=== PATIENT | female | born 1955 | race Caucasian/White ===

== ENCOUNTER 2017-07-21 01:54 | Inpatient (IN) | payer OTHER, MEDICAID ==
[~2017-07-21] VITALS: Ht 154.9 cm; Wt 94.9 kg
[~2017-07-21 01:54] MED LIST: AMLO-511 PO; ASPI-891 PO; ATOR40TA28 PO; LISI-662 PO; METF500T4 PO; METO25 PO; OMEP20 PO; SITA100 PO; VENL-193 PO
[2017-07-21] MEDS ORDERED: INSNOV SQ (02:13)
[2017-07-21] MEDS ORDERED: CHL25 PO (02:13)
[2017-07-21] MEDS ORDERED: ARIP2 PO (02:13)
[2017-07-21] MEDS ORDERED: METO50 PO (02:13)
[2017-07-21] MEDS ORDERED: INSLAN SQ (02:13)
[2017-07-21] MEDS ORDERED: BACL10TA PO (02:13)
[2017-07-21] MEDS ORDERED: PREG50 PO (02:13)
[2017-07-21] MEDS ORDERED: VENL-193 PO (02:13)
[2017-07-21 02:20] LABS: EOSINOPHILS # (AUTO) 0.02 K/uL (0.00-0.70); EOSINOPHILS % (AUTO) 0.23 % (1.0-6.0); HEMATOCRIT 33.9 % (36-46); HEMOGLOBIN 10.6 g/dL (12.0-16.0); LYMPHOCYTES # (AUTO) 0.6 K/uL (1.0-4.8); LYMPHOCYTES % (AUTO) 8.3 % (22.0-44.0); MEAN CORPUSCULAR HEMOGLOBIN 19.8 pg (26.0-34.0); MEAN CORPUSCULAR HGB CONC 31.2 G/dL (31.0-37.0); MEAN CORPUSCULAR VOLUME 63 fL (80-100); MONOCYTES # (AUTO) 0.4 K/uL (0.1-1.0); MONOCYTES % (AUTO) 5.7 % (2.0-9.0); NEUTROPHILS # (AUTO) 6.6 K/uL (1.8-7.7); RED BLOOD CELL COUNT(AUTO) 5.34 MIL/uL (4.00-5.20); RED CELL DISTRIBUTION WIDTH 19.7 % (11.5-14.5); WHITE BLOOD COUNT (AUTO) 7.7 K/uL (4.5-11.0)
[2017-07-21 02:21] LABS: NEUTROPHILS % (AUTO) 85.7 % (40.0-70.0)
[2017-07-21] MEDS ORDERED: HALOPERIDOL 5 MG TABLET PO PRN (02:30)
[2017-07-21] MEDS ORDERED: ZOLPIDEM TARTRATE 10 MG TABLET PO PRN (02:30)
[2017-07-21] MEDS ORDERED: LORazepam 2 MG TABLET PO PRN (02:30)
[2017-07-21 02:35] LABS: ALANINE AMINOTRANSFERASE 30 U/L (12-78); ALBUMIN 3.6 g/dL (3.4-5.0); ANION GAP 11 mmol/L (8-16); ASPARTATE AMINOTRANSFERASE 27 U/L (15-37); BILIRUBIN,TOTAL 0.6 mg/dL (0.1-1.0); CARBON DIOXIDE 26 mmol/L (22-29); CHLORIDE 100 mmol/L (98-107); CREATININE 1.17 mg/dL (0.60-1.30); GLOMERULAR FILTR. RATE CALC 47 mL/min (>60); SODIUM SERUM 137 mmol/L (136-145); TOTAL PROTEIN, SERUM 7.3 g/dL (6.4-8.2); UREA NITROGEN, BLOOD 18 mg/dL (7-18)
[2017-07-21] MEDS ORDERED: INSULIN REGULAR, HUMAN 100 UNITS/ML SQ ONE (02:45)
[2017-07-21 02:55] LABS: PLATELET COUNT (AUTO) 96 K/uL (150-450); RBC MORPHOLOGY COMMENT ABNORMAL RBC MORPH
[2017-07-21 02:57] LABS: POTASSIUM 2.8 mmol/L (3.5-5.1)
[2017-07-21 03:14] LABS: CHOL/HDL RATIO 3.8 (3.9-5.7)
[2017-07-21] MEDS ORDERED: POTASSIUM CHLORIDE 10% 40 MEQ/30 ML LIQUID UDCUP PO ONE ×2 (03:30→03:55)
[2017-07-21 04:08] LABS: GLUCOSE,POINT OF CARE 232 MG/DL (70-110)
[2017-07-21 07:52] LABS: GLUCOSE,POINT OF CARE 196 MG/DL (70-110)
[2017-07-21 11:32] LABS: GLUCOSE,POINT OF CARE 239 MG/DL (70-110)
[2017-07-21] MEDS ORDERED: DEXTROSE 50%-WATER 25 GM/50 ML SYRINGE IVP PRN (12:00)
[2017-07-21] MEDS: INSULIN ASPART 100 UNITS/ML SQ PRN ×2 (12:02→18:42)
[2017-07-21] MEDS ORDERED: DiphenhydrAMINE HCL 50 MG/ML VIAL IM ONE (15:30)
[2017-07-21] MEDS ORDERED: HALOPERIDOL LACTATE 5 MG/ML VIAL IM ONE (15:30)
[2017-07-21] MEDS ORDERED: LORazepam 2 MG/ML VIAL IM ONE (15:30)
[2017-07-21 17:58] LABS: GLUCOSE,POINT OF CARE 291 MG/DL (70-110)
[2017-07-21 22:36] VITALS: BP 130/70
[2017-07-22 01:28] VITALS: BP 141/83
[2017-07-22 05:39] LABS: GLUCOSE COMMENT 1 Received Meds; GLUCOSE,POINT OF CARE 214 MG/DL (70-110)
[2017-07-22] MEDS: MetFORMIN HCL 500 MG TABLET PO SCH ×2 (07:02→17:06)
[2017-07-22] MEDS: INSULIN ASPART 100 UNITS/ML SQ PRN ×4 (07:09→20:58)
[2017-07-22] MEDS: OMEPRAZOLE 20 MG CAPSULE PO SCH (08:14)
[2017-07-22] MEDS: ATORVASTATIN CALCIUM 40 MG TABLET PO SCH (08:14)
[2017-07-22] MEDS: LISINOPRIL 20 MG TABLET PO SCH ×2 (08:14→16:57)
[2017-07-22] MEDS: AmLODIPine BESYLATE 5 MG TABLET PO SCH (08:14)
[2017-07-22] MEDS: ASPIRIN 325 MG EC TABLET PO SCH (08:14)
[2017-07-22] MEDS: SitaGLIPtin PHOSPHATE 100 MG TABLET PO SCH (08:14)
[2017-07-22 10:27] VITALS: BP 128/76
[2017-07-22] MEDS: ARIPiprazole 5 MG TABLET PO SCH (11:24)
[2017-07-22 11:28] LABS: GLUCOSE COMMENT 1 Received Meds; GLUCOSE,POINT OF CARE 266 MG/DL (70-110)
[2017-07-22] MEDS: PREGABALIN 50 MG CAPSULE PO SCH ×2 (13:24→16:59)
[2017-07-22] MEDS: VENLAFAXINE HCL 75 MG TABLET PO SCH ×2 (13:25→16:58)
[2017-07-22 17:37] LABS: GLUCOSE,POINT OF CARE 300 MG/DL (70-110)
[2017-07-22 19:25] VITALS: BP 125/78
[2017-07-22 20:57] LABS: GLUCOSE,POINT OF CARE 286 MG/DL (70-110)
[2017-07-23 05:27] VITALS: BP 123/79
[2017-07-23 06:04] LABS: GLUCOSE COMMENT 1 Received Meds; GLUCOSE,POINT OF CARE 245 MG/DL (70-110)
[2017-07-23] MEDS: MetFORMIN HCL 500 MG TABLET PO SCH ×2 (07:05→16:47)
[2017-07-23] MEDS: INSULIN ASPART 100 UNITS/ML SQ PRN ×3 (07:07→20:59)
[2017-07-23 08:30] VITALS: BP 125/79
[2017-07-23] MEDS: ARIPiprazole 5 MG TABLET PO SCH (10:27)
[2017-07-23] MEDS: VENLAFAXINE HCL 75 MG TABLET PO SCH ×3 (10:28→16:49)
[2017-07-23] MEDS: ASPIRIN 325 MG EC TABLET PO SCH (10:28)
[2017-07-23] MEDS: ATORVASTATIN CALCIUM 40 MG TABLET PO SCH (10:28)
[2017-07-23] MEDS: SitaGLIPtin PHOSPHATE 100 MG TABLET PO SCH (10:28)
[2017-07-23] MEDS: AmLODIPine BESYLATE 5 MG TABLET PO SCH (10:28)
[2017-07-23] MEDS: PREGABALIN 50 MG CAPSULE PO SCH ×3 (10:28→16:49)
[2017-07-23] MEDS: OMEPRAZOLE 20 MG CAPSULE PO SCH (10:29)
[2017-07-23] MEDS: LISINOPRIL 20 MG TABLET PO SCH ×2 (10:29→16:47)
[2017-07-23 11:28] LABS: GLUCOSE,POINT OF CARE 286 MG/DL (70-110)
[2017-07-23] MEDS: FERROUS SULFATE 325 MG EC TABLET PO SCH (16:55)
[2017-07-23 17:00] VITALS: BP 122/74
[2017-07-23 20:59] LABS: GLUCOSE,POINT OF CARE 326 MG/DL (70-110)
[2017-07-24 02:40] VITALS: BP 126/77
[2017-07-24 06:07] LABS: GLUCOSE COMMENT 1 Received Meds; GLUCOSE,POINT OF CARE 223 MG/DL (70-110)
[2017-07-24] MEDS: INSULIN ASPART 100 UNITS/ML SQ PRN ×4 (07:07→22:00)
[2017-07-24] MEDS: FERROUS SULFATE 325 MG EC TABLET PO SCH ×2 (07:12→16:14)
[2017-07-24] MEDS: MetFORMIN HCL 500 MG TABLET PO SCH ×2 (07:12→16:14)
[2017-07-24 08:00] VITALS: BP 130/60
[2017-07-24] MEDS: SitaGLIPtin PHOSPHATE 100 MG TABLET PO SCH (08:57)
[2017-07-24] MEDS: ATORVASTATIN CALCIUM 40 MG TABLET PO SCH (08:57)
[2017-07-24] MEDS: LISINOPRIL 20 MG TABLET PO SCH ×2 (08:57→16:15)
[2017-07-24] MEDS: OMEPRAZOLE 20 MG CAPSULE PO SCH (08:57)
[2017-07-24] MEDS: ARIPiprazole 5 MG TABLET PO SCH (08:57)
[2017-07-24] MEDS: ASPIRIN 325 MG EC TABLET PO SCH (08:58)
[2017-07-24] MEDS: PREGABALIN 50 MG CAPSULE PO SCH ×3 (08:58→16:15)
[2017-07-24] MEDS: VENLAFAXINE HCL 75 MG TABLET PO SCH ×3 (08:59→16:15)
[2017-07-24] MEDS: AmLODIPine BESYLATE 5 MG TABLET PO SCH (09:01)
[2017-07-24 11:17] LABS: GLUCOSE COMMENT 1 Received Meds; GLUCOSE,POINT OF CARE 264 MG/DL (70-110)
[2017-07-24 16:15] VITALS: BP 144/84
[2017-07-24 16:28] LABS: GLUCOSE,POINT OF CARE 245 MG/DL (70-110)
[2017-07-24 20:47] LABS: GLUCOSE COMMENT 1 Received Meds; GLUCOSE,POINT OF CARE 269 MG/DL (70-110)
[2017-07-25 03:50] VITALS: BP 129/71
[2017-07-25 05:43] LABS: GLUCOSE COMMENT 1 Received Meds; GLUCOSE,POINT OF CARE 255 MG/DL (70-110)
[2017-07-25] MEDS: INSULIN ASPART 100 UNITS/ML SQ PRN ×4 (06:58→21:16)
[2017-07-25] MEDS: FERROUS SULFATE 325 MG EC TABLET PO SCH ×2 (07:28→16:39)
[2017-07-25] MEDS: MetFORMIN HCL 500 MG TABLET PO SCH ×2 (07:29→16:39)
[2017-07-25 08:00] VITALS: BP 113/70
[2017-07-25] MEDS: LISINOPRIL 20 MG TABLET PO SCH ×2 (09:39→16:40)
[2017-07-25] MEDS: SitaGLIPtin PHOSPHATE 100 MG TABLET PO SCH (09:39)
[2017-07-25] MEDS: PREGABALIN 50 MG CAPSULE PO SCH ×3 (09:39→16:39)
[2017-07-25] MEDS: ASPIRIN 325 MG EC TABLET PO SCH (09:39)
[2017-07-25] MEDS: VENLAFAXINE HCL 75 MG TABLET PO SCH ×3 (09:39→16:40)
[2017-07-25] MEDS: ATORVASTATIN CALCIUM 40 MG TABLET PO SCH (09:39)
[2017-07-25] MEDS: AmLODIPine BESYLATE 5 MG TABLET PO SCH (09:39)
[2017-07-25] MEDS: ARIPiprazole 5 MG TABLET PO SCH (09:39)
[2017-07-25] MEDS: OMEPRAZOLE 20 MG CAPSULE PO SCH (09:39)
[2017-07-25 11:17] LABS: GLUCOSE,POINT OF CARE 259 MG/DL (70-110)
[2017-07-25 16:10] VITALS: BP 120/75
[2017-07-25 16:47] LABS: GLUCOSE,POINT OF CARE 241 MG/DL (70-110)
[2017-07-25 21:22] LABS: GLUCOSE,POINT OF CARE 202 MG/DL (70-110)
[2017-07-26 05:39] VITALS: BP 130/75
[2017-07-26 06:18] LABS: GLUCOSE COMMENT 1 Received Meds; GLUCOSE,POINT OF CARE 195 MG/DL (70-110)
[2017-07-26] MEDS: INSULIN ASPART 100 UNITS/ML SQ PRN ×5 (07:02→21:12)
[2017-07-26] MEDS: MetFORMIN HCL 500 MG TABLET PO SCH ×2 (07:12→17:14)
[2017-07-26] MEDS: FERROUS SULFATE 325 MG EC TABLET PO SCH ×2 (07:13→17:15)
[2017-07-26 08:00] VITALS: BP 128/72
[2017-07-26] MEDS: ARIPiprazole 5 MG TABLET PO SCH (08:57)
[2017-07-26] MEDS: PREGABALIN 50 MG CAPSULE PO SCH ×3 (08:57→17:13)
[2017-07-26] MEDS: ASPIRIN 325 MG EC TABLET PO SCH (08:58)
[2017-07-26] MEDS: AmLODIPine BESYLATE 5 MG TABLET PO SCH (08:58)
[2017-07-26] MEDS: LISINOPRIL 20 MG TABLET PO SCH ×2 (08:58→17:16)
[2017-07-26] MEDS: VENLAFAXINE HCL 75 MG TABLET PO SCH ×3 (08:58→17:15)
[2017-07-26] MEDS: ATORVASTATIN CALCIUM 40 MG TABLET PO SCH (08:59)
[2017-07-26] MEDS: SitaGLIPtin PHOSPHATE 100 MG TABLET PO SCH (08:59)
[2017-07-26] MEDS: OMEPRAZOLE 20 MG CAPSULE PO SCH (09:00)
[2017-07-26 11:28] LABS: GLUCOSE,POINT OF CARE 265 MG/DL (70-110)
[2017-07-26 17:15] VITALS: BP 116/75
[2017-07-26 22:57] LABS: GLUCOSE,POINT OF CARE 273 MG/DL (70-110)
[2017-07-26 23:02] LABS: GLUCOSE,POINT OF CARE 197 MG/DL (70-110)
[2017-07-27 05:58] LABS: GLUCOSE COMMENT 1 Juice/Food/D50 Given; GLUCOSE COMMENT 2 Received Meds; GLUCOSE,POINT OF CARE 196 MG/DL (70-110)
[2017-07-27 07:03] VITALS: BP 114/72
[2017-07-27] MEDS: INSULIN ASPART 100 UNITS/ML SQ PRN ×4 (07:11→21:16)
[2017-07-27] MEDS: FERROUS SULFATE 325 MG EC TABLET PO SCH ×2 (07:19→17:25)
[2017-07-27] MEDS: MetFORMIN HCL 500 MG TABLET PO SCH ×2 (07:20→17:16)
[2017-07-27] MEDS: ATORVASTATIN CALCIUM 40 MG TABLET PO SCH (08:50)
[2017-07-27] MEDS: LISINOPRIL 20 MG TABLET PO SCH ×2 (08:50→17:15)
[2017-07-27] MEDS: VENLAFAXINE HCL 75 MG TABLET PO SCH ×3 (08:50→17:26)
[2017-07-27] MEDS: AmLODIPine BESYLATE 5 MG TABLET PO SCH (08:50)
[2017-07-27] MEDS: ARIPiprazole 5 MG TABLET PO SCH (08:50)
[2017-07-27] MEDS: ASPIRIN 325 MG EC TABLET PO SCH (08:50)
[2017-07-27] MEDS: OMEPRAZOLE 20 MG CAPSULE PO SCH (08:50)
[2017-07-27] MEDS: PREGABALIN 50 MG CAPSULE PO SCH ×3 (08:50→17:24)
[2017-07-27] MEDS: SitaGLIPtin PHOSPHATE 100 MG TABLET PO SCH (08:50)
[2017-07-27 11:22] LABS: GLUCOSE COMMENT 1 Received Meds; GLUCOSE,POINT OF CARE 234 MG/DL (70-110)
[2017-07-27 17:00] VITALS: BP 155/73
[2017-07-27 17:57] LABS: GLUCOSE,POINT OF CARE 223 MG/DL (70-110)
[2017-07-27 21:18] LABS: GLUCOSE COMMENT 1 Received Meds; GLUCOSE,POINT OF CARE 220 MG/DL (70-110)
[2017-07-28 06:08] LABS: GLUCOSE COMMENT 1 Received Meds; GLUCOSE COMMENT 2 Juice/Food/D50 Given; GLUCOSE,POINT OF CARE 201 MG/DL (70-110)
[2017-07-28] MEDS: FERROUS SULFATE 325 MG EC TABLET PO SCH ×2 (07:08→16:42)
[2017-07-28] MEDS: MetFORMIN HCL 500 MG TABLET PO SCH ×2 (07:08→16:45)
[2017-07-28] MEDS: INSULIN ASPART 100 UNITS/ML SQ PRN ×4 (07:09→20:51)
[2017-07-28 08:12] VITALS: BP 148/88
[2017-07-28] MEDS: PREGABALIN 50 MG CAPSULE PO SCH ×3 (09:02→16:46)
[2017-07-28] MEDS: ARIPiprazole 5 MG TABLET PO SCH (09:02)
[2017-07-28] MEDS: OMEPRAZOLE 20 MG CAPSULE PO SCH (09:03)
[2017-07-28] MEDS: LISINOPRIL 20 MG TABLET PO SCH ×2 (09:03→16:46)
[2017-07-28] MEDS: VENLAFAXINE HCL 75 MG TABLET PO SCH ×3 (09:03→16:46)
[2017-07-28] MEDS: ATORVASTATIN CALCIUM 40 MG TABLET PO SCH (09:03)
[2017-07-28] MEDS: ASPIRIN 325 MG EC TABLET PO SCH (09:03)
[2017-07-28] MEDS: SitaGLIPtin PHOSPHATE 100 MG TABLET PO SCH (09:03)
[2017-07-28] MEDS: AmLODIPine BESYLATE 5 MG TABLET PO SCH (09:04)
[2017-07-28 11:38] LABS: GLUCOSE,POINT OF CARE 275 MG/DL (70-110)
[2017-07-28 16:07] VITALS: BP 131/77
[2017-07-28 16:52] LABS: GLUCOSE COMMENT 1 Received Meds; GLUCOSE,POINT OF CARE 196 MG/DL (70-110)
[2017-07-28 20:47] LABS: GLUCOSE COMMENT 1 Received Meds; GLUCOSE,POINT OF CARE 191 MG/DL (70-110)
[2017-07-29 02:56] VITALS: BP 136/84
[2017-07-29 05:58] LABS: GLUCOSE COMMENT 1 Received Meds; GLUCOSE,POINT OF CARE 184 MG/DL (70-110)
[2017-07-29] MEDS: MetFORMIN HCL 500 MG TABLET PO SCH ×2 (06:21→17:32)
[2017-07-29] MEDS: FERROUS SULFATE 325 MG EC TABLET PO SCH ×2 (06:21→17:31)
[2017-07-29] MEDS: INSULIN ASPART 100 UNITS/ML SQ PRN ×4 (06:36→21:11)
[2017-07-29] MEDS: ASPIRIN 325 MG EC TABLET PO SCH (09:21)
[2017-07-29] MEDS: ATORVASTATIN CALCIUM 40 MG TABLET PO SCH (09:21)
[2017-07-29] MEDS: PREGABALIN 50 MG CAPSULE PO SCH ×3 (09:21→16:49)
[2017-07-29] MEDS: ARIPiprazole 5 MG TABLET PO SCH (09:21)
[2017-07-29] MEDS: OMEPRAZOLE 20 MG CAPSULE PO SCH (09:21)
[2017-07-29] MEDS: VENLAFAXINE HCL 75 MG TABLET PO SCH ×3 (09:21→16:49)
[2017-07-29] MEDS: LISINOPRIL 20 MG TABLET PO SCH ×2 (09:21→16:48)
[2017-07-29] MEDS: SitaGLIPtin PHOSPHATE 100 MG TABLET PO SCH (09:22)
[2017-07-29] MEDS: AmLODIPine BESYLATE 5 MG TABLET PO SCH (09:22)
[2017-07-29 11:58] LABS: GLUCOSE COMMENT 1 Received Meds; GLUCOSE,POINT OF CARE 253 MG/DL (70-110)
[2017-07-29 12:43] VITALS: BP 157/73
[2017-07-29 16:37] LABS: GLUCOSE COMMENT 1 Received Meds; GLUCOSE,POINT OF CARE 205 MG/DL (70-110)
[2017-07-29 21:35] VITALS: BP 139/78
[2017-07-29 21:55] LABS: GLUCOSE COMMENT 1 Received Meds; GLUCOSE,POINT OF CARE 226 MG/DL (70-110)
[2017-07-30 06:43] LABS: GLUCOSE COMMENT 1 Received Meds; GLUCOSE,POINT OF CARE 207 MG/DL (70-110)
[2017-07-30 06:47] LABS: BASOPHILS % (AUTO) 0.1 % (0.0-2.0); EOSINOPHILS % (AUTO) 1.1 % (1.0-6.0); HEMATOCRIT 30.4 % (36-46); HEMOGLOBIN 9.7 g/dL (12.0-16.0); LYMPHOCYTES % (AUTO) 31.2 % (22.0-44.0); MEAN CORPUSCULAR HEMOGLOBIN 20.3 pg (26.0-34.0); MEAN CORPUSCULAR HGB CONC 31.8 G/dL (31.0-37.0); MEAN CORPUSCULAR VOLUME 64 fL (80-100); MONOCYTES # (AUTO) 0.3 K/uL (0.1-1.0); MONOCYTES % (AUTO) 10.2 % (2.0-9.0); NEUTROPHILS # (AUTO) 1.9 K/uL (1.8-7.7); NEUTROPHILS % (AUTO) 57.4 % (40.0-70.0); PLATELET COUNT (AUTO) 106 K/uL (150-450); RED BLOOD CELL COUNT(AUTO) 4.76 MIL/uL (4.00-5.20); RED CELL DISTRIBUTION WIDTH 20.2 % (11.5-14.5); WHITE BLOOD COUNT (AUTO) 3.3 K/uL (4.5-11.0)
[2017-07-30] MEDS: INSULIN ASPART 100 UNITS/ML SQ PRN ×4 (06:52→20:40)
[2017-07-30 06:56] VITALS: BP 140/72
[2017-07-30] MEDS: MetFORMIN HCL 500 MG TABLET PO SCH ×2 (06:59→17:25)
[2017-07-30] MEDS: FERROUS SULFATE 325 MG EC TABLET PO SCH ×2 (06:59→17:25)
[2017-07-30 08:05] VITALS: BP 136/83
[2017-07-30 08:25] LABS: RBC MORPHOLOGY COMMENT ABNORMAL RBC MORPH
[2017-07-30] MEDS: AmLODIPine BESYLATE 5 MG TABLET PO SCH (08:39)
[2017-07-30] MEDS: OMEPRAZOLE 20 MG CAPSULE PO SCH (08:39)
[2017-07-30] MEDS: LISINOPRIL 20 MG TABLET PO SCH ×2 (08:39→16:09)
[2017-07-30] MEDS: ARIPiprazole 5 MG TABLET PO SCH (08:39)
[2017-07-30] MEDS: SitaGLIPtin PHOSPHATE 100 MG TABLET PO SCH (08:40)
[2017-07-30] MEDS: PREGABALIN 50 MG CAPSULE PO SCH ×3 (08:40→16:09)
[2017-07-30] MEDS: ATORVASTATIN CALCIUM 40 MG TABLET PO SCH (08:40)
[2017-07-30] MEDS: VENLAFAXINE HCL 75 MG TABLET PO SCH ×3 (08:40→16:09)
[2017-07-30] MEDS: ASPIRIN 325 MG EC TABLET PO SCH (08:41)
[2017-07-30 11:27] LABS: GLUCOSE,POINT OF CARE 210 MG/DL (70-110)
[2017-07-30 16:13] LABS: GLUCOSE COMMENT 1 Received Meds; GLUCOSE,POINT OF CARE 208 MG/DL (70-110)
[2017-07-30 17:09] VITALS: BP 143/87
[2017-07-30 20:32] LABS: GLUCOSE COMMENT 1 Received Meds; GLUCOSE,POINT OF CARE 239 MG/DL (70-110)
[2017-07-31 06:03] LABS: GLUCOSE,POINT OF CARE 202 MG/DL (70-110)
[2017-07-31 06:45] VITALS: BP 160/76
[2017-07-31] MEDS: INSULIN ASPART 100 UNITS/ML SQ PRN ×5 (07:08→20:23)
[2017-07-31 07:15] VITALS: BP 142/83
[2017-07-31] MEDS: FERROUS SULFATE 325 MG EC TABLET PO SCH ×2 (07:19→16:48)
[2017-07-31] MEDS: MetFORMIN HCL 500 MG TABLET PO SCH ×2 (07:20→17:55)
[2017-07-31 07:23] VITALS: BP 160/76
[2017-07-31 08:19] VITALS: BP 140/96
[2017-07-31] MEDS: ARIPiprazole 5 MG TABLET PO SCH (08:40)
[2017-07-31] MEDS: AmLODIPine BESYLATE 5 MG TABLET PO SCH (08:40)
[2017-07-31] MEDS: OMEPRAZOLE 20 MG CAPSULE PO SCH (08:40)
[2017-07-31] MEDS: ASPIRIN 325 MG EC TABLET PO SCH (08:41)
[2017-07-31] MEDS: LISINOPRIL 20 MG TABLET PO SCH ×2 (08:41→16:50)
[2017-07-31] MEDS: ATORVASTATIN CALCIUM 40 MG TABLET PO SCH (08:42)
[2017-07-31] MEDS: SitaGLIPtin PHOSPHATE 100 MG TABLET PO SCH (08:42)
[2017-07-31] MEDS: VENLAFAXINE HCL 75 MG TABLET PO SCH ×3 (08:42→16:48)
[2017-07-31] MEDS: PREGABALIN 50 MG CAPSULE PO SCH ×3 (08:42→16:49)
[2017-07-31 11:25] LABS: GLUCOSE,POINT OF CARE 241 MG/DL (70-110)
[2017-07-31 16:40] VITALS: BP 139/83
[2017-07-31 16:55] LABS: GLUCOSE COMMENT 1 Received Meds; GLUCOSE,POINT OF CARE 238 MG/DL (70-110)
[2017-07-31 20:30] LABS: GLUCOSE COMMENT 1 Received Meds; GLUCOSE,POINT OF CARE 250 MG/DL (70-110)
[2017-08-01 05:58] LABS: GLUCOSE COMMENT 1 Received Meds; GLUCOSE,POINT OF CARE 227 MG/DL (70-110)
[2017-08-01 06:29] VITALS: BP 137/80
[2017-08-01] MEDS: FERROUS SULFATE 325 MG EC TABLET PO SCH ×2 (06:34→16:51)
[2017-08-01] MEDS: MetFORMIN HCL 500 MG TABLET PO SCH ×2 (06:34→16:52)
[2017-08-01] MEDS: INSULIN ASPART 100 UNITS/ML SQ PRN ×4 (06:49→20:58)
[2017-08-01] MEDS: OMEPRAZOLE 20 MG CAPSULE PO SCH (07:34)
[2017-08-01] MEDS: AmLODIPine BESYLATE 5 MG TABLET PO SCH (07:34)
[2017-08-01] MEDS: LISINOPRIL 20 MG TABLET PO SCH ×2 (07:34→16:51)
[2017-08-01] MEDS: SitaGLIPtin PHOSPHATE 100 MG TABLET PO SCH (07:35)
[2017-08-01] MEDS: VENLAFAXINE HCL 75 MG TABLET PO SCH ×3 (07:35→16:50)
[2017-08-01] MEDS: PREGABALIN 50 MG CAPSULE PO SCH ×3 (07:35→16:51)
[2017-08-01] MEDS: ATORVASTATIN CALCIUM 40 MG TABLET PO SCH (07:35)
[2017-08-01] MEDS: ARIPiprazole 5 MG TABLET PO SCH (07:35)
[2017-08-01] MEDS: ASPIRIN 325 MG EC TABLET PO SCH (07:35)
[2017-08-01 08:05] VITALS: BP 154/94
[2017-08-01 11:34] LABS: GLUCOSE,POINT OF CARE 251 MG/DL (70-110)
[2017-08-01 17:00] VITALS: BP 123/76
[2017-08-01 17:08] LABS: GLUCOSE COMMENT 1 Received Meds; GLUCOSE,POINT OF CARE 303 MG/DL (70-110)
[2017-08-01 21:07] LABS: GLUCOSE COMMENT 1 Received Meds; GLUCOSE,POINT OF CARE 272 MG/DL (70-110)
[2017-08-02 06:13] LABS: GLUCOSE,POINT OF CARE 206 MG/DL (70-110)
[2017-08-02] MEDS: FERROUS SULFATE 325 MG EC TABLET PO SCH ×2 (06:51→17:26)
[2017-08-02] MEDS: MetFORMIN HCL 500 MG TABLET PO SCH ×2 (06:51→17:27)
[2017-08-02] MEDS: INSULIN ASPART 100 UNITS/ML SQ PRN ×4 (07:09→21:16)
[2017-08-02 07:20] VITALS: BP 144/88
[2017-08-02] MEDS: ATORVASTATIN CALCIUM 40 MG TABLET PO SCH (08:41)
[2017-08-02] MEDS: ARIPiprazole 5 MG TABLET PO SCH (08:41)
[2017-08-02] MEDS: VENLAFAXINE HCL 75 MG TABLET PO SCH ×3 (08:41→17:26)
[2017-08-02] MEDS: ASPIRIN 325 MG EC TABLET PO SCH (08:41)
[2017-08-02] MEDS: SitaGLIPtin PHOSPHATE 100 MG TABLET PO SCH (08:41)
[2017-08-02] MEDS: PREGABALIN 50 MG CAPSULE PO SCH ×3 (08:42→17:26)
[2017-08-02] MEDS: AmLODIPine BESYLATE 5 MG TABLET PO SCH (08:43)
[2017-08-02] MEDS: OMEPRAZOLE 20 MG CAPSULE PO SCH (08:43)
[2017-08-02] MEDS: LISINOPRIL 20 MG TABLET PO SCH ×2 (08:43→17:28)
[2017-08-02 09:13] VITALS: BP 146/78
[2017-08-02 11:23] LABS: GLUCOSE,POINT OF CARE 283 MG/DL (70-110)
[2017-08-02 16:54] LABS: GLUCOSE,POINT OF CARE 243 MG/DL (70-110)
[2017-08-02 17:00] VITALS: BP 140/86
[2017-08-02 23:23] LABS: GLUCOSE,POINT OF CARE 229 MG/DL (70-110)
[2017-08-03 05:43] LABS: GLUCOSE COMMENT 1 Received Meds; GLUCOSE,POINT OF CARE 214 MG/DL (70-110)
[2017-08-03] MEDS: MetFORMIN HCL 500 MG TABLET PO SCH ×2 (06:35→16:40)
[2017-08-03] MEDS: FERROUS SULFATE 325 MG EC TABLET PO SCH ×2 (06:37→16:39)
[2017-08-03] MEDS: INSULIN ASPART 100 UNITS/ML SQ PRN ×4 (06:52→20:57)
[2017-08-03] MEDS: OMEPRAZOLE 20 MG CAPSULE PO SCH (08:47)
[2017-08-03] MEDS: PREGABALIN 50 MG CAPSULE PO SCH ×3 (08:47→16:39)
[2017-08-03] MEDS: LISINOPRIL 20 MG TABLET PO SCH ×2 (08:47→16:41)
[2017-08-03] MEDS: SitaGLIPtin PHOSPHATE 100 MG TABLET PO SCH (08:47)
[2017-08-03] MEDS: ASPIRIN 325 MG EC TABLET PO SCH (08:48)
[2017-08-03] MEDS: AmLODIPine BESYLATE 5 MG TABLET PO SCH (08:48)
[2017-08-03] MEDS: ARIPiprazole 5 MG TABLET PO SCH (08:48)
[2017-08-03] MEDS: ATORVASTATIN CALCIUM 40 MG TABLET PO SCH (08:48)
[2017-08-03] MEDS: VENLAFAXINE HCL 75 MG TABLET PO SCH ×3 (08:48→16:38)
[2017-08-03 08:52] VITALS: BP 154/93
[2017-08-03 11:22] LABS: GLUCOSE COMMENT 1 Received Meds; GLUCOSE,POINT OF CARE 258 MG/DL (70-110)
[2017-08-03 16:53] LABS: GLUCOSE,POINT OF CARE 218 MG/DL (70-110)
[2017-08-03 17:03] VITALS: BP 142/90
[2017-08-03 20:42] LABS: GLUCOSE,POINT OF CARE 220 MG/DL (70-110)
[2017-08-04 04:46] VITALS: BP 153/87
[2017-08-04 06:23] LABS: GLUCOSE,POINT OF CARE 201 MG/DL (70-110)
[2017-08-04] MEDS: FERROUS SULFATE 325 MG EC TABLET PO SCH ×2 (06:54→16:33)
[2017-08-04] MEDS: MetFORMIN HCL 500 MG TABLET PO SCH ×2 (06:54→16:35)
[2017-08-04] MEDS: INSULIN ASPART 100 UNITS/ML SQ PRN ×4 (07:12→21:21)
[2017-08-04 08:16] VITALS: BP 139/93
[2017-08-04] MEDS: ARIPiprazole 5 MG TABLET PO SCH (08:44)
[2017-08-04] MEDS: VENLAFAXINE HCL 75 MG TABLET PO SCH ×3 (08:44→16:33)
[2017-08-04] MEDS: ATORVASTATIN CALCIUM 40 MG TABLET PO SCH (08:44)
[2017-08-04] MEDS: PREGABALIN 50 MG CAPSULE PO SCH ×3 (08:44→16:32)
[2017-08-04] MEDS: ASPIRIN 325 MG EC TABLET PO SCH (08:44)
[2017-08-04] MEDS: LISINOPRIL 20 MG TABLET PO SCH ×2 (08:45→16:33)
[2017-08-04] MEDS: SitaGLIPtin PHOSPHATE 100 MG TABLET PO SCH (08:45)
[2017-08-04] MEDS: AmLODIPine BESYLATE 5 MG TABLET PO SCH (08:45)
[2017-08-04] MEDS: OMEPRAZOLE 20 MG CAPSULE PO SCH (08:47)
[2017-08-04 11:32] LABS: GLUCOSE,POINT OF CARE 195 MG/DL (70-110)
[2017-08-04 18:30] VITALS: BP 133/79
[2017-08-04 20:22] LABS: GLUCOSE,POINT OF CARE 185 MG/DL (70-110)
[2017-08-04 20:56] LABS: GLUCOSE,POINT OF CARE 149 MG/DL (70-110)
[2017-08-05 05:15] VITALS: BP 153/98
[2017-08-05 06:28] LABS: GLUCOSE COMMENT 1 Received Meds; GLUCOSE,POINT OF CARE 194 MG/DL (70-110)
[2017-08-05] MEDS: MetFORMIN HCL 500 MG TABLET PO SCH ×2 (06:44→16:48)
[2017-08-05] MEDS: FERROUS SULFATE 325 MG EC TABLET PO SCH ×2 (06:44→16:48)
[2017-08-05] MEDS: INSULIN ASPART 100 UNITS/ML SQ PRN ×4 (07:14→21:40)
[2017-08-05 08:30] VITALS: BP 139/83
[2017-08-05] MEDS: ASPIRIN 325 MG EC TABLET PO SCH (08:37)
[2017-08-05] MEDS: VENLAFAXINE HCL 75 MG TABLET PO SCH ×3 (08:37→16:48)
[2017-08-05] MEDS: ARIPiprazole 5 MG TABLET PO SCH (08:37)
[2017-08-05] MEDS: AmLODIPine BESYLATE 5 MG TABLET PO SCH (08:37)
[2017-08-05] MEDS: PREGABALIN 50 MG CAPSULE PO SCH ×3 (08:37→16:48)
[2017-08-05] MEDS: LISINOPRIL 20 MG TABLET PO SCH ×2 (08:37→16:48)
[2017-08-05] MEDS: OMEPRAZOLE 20 MG CAPSULE PO SCH (08:37)
[2017-08-05] MEDS: SitaGLIPtin PHOSPHATE 100 MG TABLET PO SCH (08:37)
[2017-08-05] MEDS: ATORVASTATIN CALCIUM 40 MG TABLET PO SCH (08:37)
[2017-08-05 12:17] LABS: GLUCOSE,POINT OF CARE 199 MG/DL (70-110)
[2017-08-05 16:27] LABS: GLUCOSE,POINT OF CARE 170 MG/DL (70-110)
[2017-08-05 16:37] VITALS: BP 138/89
[2017-08-05 20:32] LABS: GLUCOSE,POINT OF CARE 174 MG/DL (70-110)
[2017-08-05] MEDS ORDERED: BACITRACIN 28.4 GM OINTMENT TP PRN (22:45)
[2017-08-06 05:48] LABS: GLUCOSE COMMENT 1 Received Meds; GLUCOSE,POINT OF CARE 189 MG/DL (70-110)
[2017-08-06] MEDS: INSULIN ASPART 100 UNITS/ML SQ PRN ×3 (06:51→21:10)
[2017-08-06] MEDS: FERROUS SULFATE 325 MG EC TABLET PO SCH ×2 (06:59→16:23)
[2017-08-06] MEDS: MetFORMIN HCL 500 MG TABLET PO SCH ×2 (06:59→16:58)
[2017-08-06] MEDS: ASPIRIN 325 MG EC TABLET PO SCH (08:10)
[2017-08-06] MEDS: PREGABALIN 50 MG CAPSULE PO SCH ×3 (08:10→16:23)
[2017-08-06] MEDS: LISINOPRIL 20 MG TABLET PO SCH ×2 (08:10→16:23)
[2017-08-06] MEDS: ARIPiprazole 5 MG TABLET PO SCH (08:10)
[2017-08-06] MEDS: ATORVASTATIN CALCIUM 40 MG TABLET PO SCH (08:10)
[2017-08-06] MEDS: VENLAFAXINE HCL 75 MG TABLET PO SCH ×3 (08:10→16:23)
[2017-08-06] MEDS: SitaGLIPtin PHOSPHATE 100 MG TABLET PO SCH (08:11)
[2017-08-06] MEDS: AmLODIPine BESYLATE 5 MG TABLET PO SCH (08:11)
[2017-08-06] MEDS: OMEPRAZOLE 20 MG CAPSULE PO SCH (08:11)
[2017-08-06 08:16] VITALS: BP 142/77
[2017-08-06 11:42] LABS: GLUCOSE,POINT OF CARE 120 MG/DL (70-110)
[2017-08-06 16:28] VITALS: BP 147/77
[2017-08-06 16:43] LABS: GLUCOSE,POINT OF CARE 192 MG/DL (70-110)
[2017-08-06 20:37] LABS: GLUCOSE,POINT OF CARE 151 MG/DL (70-110)
[2017-08-07 01:06] VITALS: BP 140/88
[2017-08-07 06:22] LABS: GLUCOSE COMMENT 1 Received Meds; GLUCOSE,POINT OF CARE 171 MG/DL (70-110)
[2017-08-07] MEDS: FERROUS SULFATE 325 MG EC TABLET PO SCH ×2 (06:38→16:45)
[2017-08-07] MEDS: MetFORMIN HCL 500 MG TABLET PO SCH ×2 (06:38→16:45)
[2017-08-07] MEDS: INSULIN ASPART 100 UNITS/ML SQ PRN ×3 (06:39→17:15)
[2017-08-07] MEDS: VENLAFAXINE HCL 75 MG TABLET PO SCH ×3 (08:30→16:45)
[2017-08-07] MEDS: ARIPiprazole 5 MG TABLET PO SCH (08:30)
[2017-08-07] MEDS: ASPIRIN 325 MG EC TABLET PO SCH (08:30)
[2017-08-07] MEDS: SitaGLIPtin PHOSPHATE 100 MG TABLET PO SCH (08:30)
[2017-08-07] MEDS: LISINOPRIL 20 MG TABLET PO SCH ×2 (08:31→16:46)
[2017-08-07] MEDS: ATORVASTATIN CALCIUM 40 MG TABLET PO SCH (08:31)
[2017-08-07] MEDS: OMEPRAZOLE 20 MG CAPSULE PO SCH (08:31)
[2017-08-07] MEDS: PREGABALIN 50 MG CAPSULE PO SCH ×3 (08:31→16:45)
[2017-08-07] MEDS: AmLODIPine BESYLATE 5 MG TABLET PO SCH (08:31)
[2017-08-07 09:40] VITALS: BP 149/84
[2017-08-07 11:28] LABS: GLUCOSE,POINT OF CARE 177 MG/DL (70-110)
[2017-08-07 17:01] VITALS: BP 141/82
[2017-08-07 17:12] LABS: GLUCOSE,POINT OF CARE 219 MG/DL (70-110)
[2017-08-07 21:33] LABS: GLUCOSE,POINT OF CARE 135 MG/DL (70-110)
[2017-08-08 02:00] VITALS: BP 142/78
[2017-08-08 06:07] LABS: GLUCOSE,POINT OF CARE 172 MG/DL (70-110)
[2017-08-08] MEDS: INSULIN ASPART 100 UNITS/ML SQ PRN ×3 (06:46→17:53)
[2017-08-08] MEDS: MetFORMIN HCL 500 MG TABLET PO SCH ×2 (06:47→17:43)
[2017-08-08] MEDS: FERROUS SULFATE 325 MG EC TABLET PO SCH ×2 (06:47→17:44)
[2017-08-08 08:00] VITALS: BP 135/62
[2017-08-08] MEDS: ATORVASTATIN CALCIUM 40 MG TABLET PO SCH (09:18)
[2017-08-08] MEDS: ARIPiprazole 5 MG TABLET PO SCH (09:18)
[2017-08-08] MEDS: SitaGLIPtin PHOSPHATE 100 MG TABLET PO SCH (09:18)
[2017-08-08] MEDS: ASPIRIN 325 MG EC TABLET PO SCH (09:18)
[2017-08-08] MEDS: AmLODIPine BESYLATE 5 MG TABLET PO SCH (09:18)
[2017-08-08] MEDS: VENLAFAXINE HCL 75 MG TABLET PO SCH ×3 (09:18→17:43)
[2017-08-08] MEDS: PREGABALIN 50 MG CAPSULE PO SCH ×3 (09:19→17:43)
[2017-08-08] MEDS: OMEPRAZOLE 20 MG CAPSULE PO SCH (09:21)
[2017-08-08] MEDS: LISINOPRIL 20 MG TABLET PO SCH ×2 (09:21→17:44)
[2017-08-08 11:02] LABS: GLUCOSE,POINT OF CARE 202 MG/DL (70-110)
[2017-08-08 16:14] VITALS: BP 125/77
[2017-08-08 17:01] LABS: GLUCOSE,POINT OF CARE 179 MG/DL (70-110)
[2017-08-08 21:17] LABS: GLUCOSE COMMENT 1 Juice/Food/D50 Given; GLUCOSE,POINT OF CARE 75 MG/DL (70-110)
[2017-08-09 06:08] LABS: GLUCOSE,POINT OF CARE 129 MG/DL (70-110)
[2017-08-09 06:12] LABS: GLUCOSE,POINT OF CARE 183 MG/DL (70-110)
[2017-08-09] MEDS: FERROUS SULFATE 325 MG EC TABLET PO SCH ×2 (07:06→17:41)
[2017-08-09] MEDS: MetFORMIN HCL 500 MG TABLET PO SCH ×2 (07:06→17:40)
[2017-08-09] MEDS: INSULIN ASPART 100 UNITS/ML SQ PRN ×4 (07:08→20:32)
[2017-08-09 09:54] VITALS: BP 148/76
[2017-08-09] MEDS: ATORVASTATIN CALCIUM 40 MG TABLET PO SCH (10:00)
[2017-08-09] MEDS: VENLAFAXINE HCL 75 MG TABLET PO SCH ×3 (10:00→16:34)
[2017-08-09] MEDS: ARIPiprazole 5 MG TABLET PO SCH (10:00)
[2017-08-09] MEDS: ASPIRIN 325 MG EC TABLET PO SCH (10:00)
[2017-08-09] MEDS: LISINOPRIL 20 MG TABLET PO SCH ×2 (10:01→16:34)
[2017-08-09] MEDS: AmLODIPine BESYLATE 5 MG TABLET PO SCH (10:01)
[2017-08-09] MEDS: PREGABALIN 50 MG CAPSULE PO SCH ×3 (10:01→16:34)
[2017-08-09] MEDS: OMEPRAZOLE 20 MG CAPSULE PO SCH (10:01)
[2017-08-09] MEDS: SitaGLIPtin PHOSPHATE 100 MG TABLET PO SCH (10:02)
[2017-08-09 11:27] LABS: GLUCOSE COMMENT 1 Received Meds; GLUCOSE,POINT OF CARE 176 MG/DL (70-110)
[2017-08-09 16:53] LABS: GLUCOSE COMMENT 1 Received Meds; GLUCOSE,POINT OF CARE 191 MG/DL (70-110)
[2017-08-09 17:26] VITALS: BP 146/81
[2017-08-09 20:27] LABS: GLUCOSE COMMENT 1 Received Meds; GLUCOSE,POINT OF CARE 181 MG/DL (70-110)
[2017-08-10 06:12] LABS: GLUCOSE COMMENT 1 Received Meds; GLUCOSE,POINT OF CARE 173 MG/DL (70-110)
[2017-08-10] MEDS: FERROUS SULFATE 325 MG EC TABLET PO SCH ×2 (07:00→17:41)
[2017-08-10] MEDS: MetFORMIN HCL 500 MG TABLET PO SCH ×2 (07:00→17:41)
[2017-08-10] MEDS: INSULIN ASPART 100 UNITS/ML SQ PRN ×4 (07:01→20:36)
[2017-08-10 08:00] VITALS: BP 162/95
[2017-08-10] MEDS: VENLAFAXINE HCL 75 MG TABLET PO SCH ×3 (08:21→16:56)
[2017-08-10] MEDS: SitaGLIPtin PHOSPHATE 100 MG TABLET PO SCH (08:21)
[2017-08-10] MEDS: ATORVASTATIN CALCIUM 40 MG TABLET PO SCH (08:21)
[2017-08-10] MEDS: ASPIRIN 325 MG EC TABLET PO SCH (08:21)
[2017-08-10] MEDS: ARIPiprazole 5 MG TABLET PO SCH (08:21)
[2017-08-10] MEDS: PREGABALIN 50 MG CAPSULE PO SCH ×3 (08:21→16:56)
[2017-08-10] MEDS: AmLODIPine BESYLATE 5 MG TABLET PO SCH (08:25)
[2017-08-10] MEDS: OMEPRAZOLE 20 MG CAPSULE PO SCH (08:25)
[2017-08-10] MEDS: LISINOPRIL 20 MG TABLET PO SCH ×2 (09:15→16:58)
[2017-08-10 11:17] LABS: GLUCOSE,POINT OF CARE 167 MG/DL (70-110)
[2017-08-10 16:37] LABS: GLUCOSE COMMENT 1 Received Meds; GLUCOSE,POINT OF CARE 151 MG/DL (70-110)
[2017-08-10 17:34] VITALS: BP 136/85
[2017-08-10 21:22] LABS: GLUCOSE COMMENT 1 Received Meds; GLUCOSE,POINT OF CARE 204 MG/DL (70-110)
[2017-08-11 05:27] LABS: GLUCOSE COMMENT 1 Received Meds; GLUCOSE,POINT OF CARE 158 MG/DL (70-110)
[2017-08-11] MEDS: INSULIN ASPART 100 UNITS/ML SQ PRN ×4 (06:51→21:31)
[2017-08-11] MEDS: MetFORMIN HCL 500 MG TABLET PO SCH ×2 (06:52→17:26)
[2017-08-11] MEDS: FERROUS SULFATE 325 MG EC TABLET PO SCH ×2 (06:53→17:25)
[2017-08-11 08:27] VITALS: BP 154/87
[2017-08-11] MEDS: PREGABALIN 50 MG CAPSULE PO SCH ×3 (08:56→17:25)
[2017-08-11] MEDS: SitaGLIPtin PHOSPHATE 100 MG TABLET PO SCH (08:56)
[2017-08-11] MEDS: ATORVASTATIN CALCIUM 40 MG TABLET PO SCH (08:56)
[2017-08-11] MEDS: AmLODIPine BESYLATE 5 MG TABLET PO SCH (08:56)
[2017-08-11] MEDS: ARIPiprazole 5 MG TABLET PO SCH ×2 (08:56→17:26)
[2017-08-11] MEDS: VENLAFAXINE HCL 75 MG TABLET PO SCH ×3 (08:56→17:24)
[2017-08-11] MEDS: LISINOPRIL 20 MG TABLET PO SCH ×2 (08:56→17:29)
[2017-08-11] MEDS: ASPIRIN 325 MG EC TABLET PO SCH (08:56)
[2017-08-11] MEDS: OMEPRAZOLE 20 MG CAPSULE PO SCH (08:56)
[2017-08-11 11:47] LABS: GLUCOSE COMMENT 1 Received Meds; GLUCOSE,POINT OF CARE 196 MG/DL (70-110)
[2017-08-11 17:00] VITALS: BP 150/86
[2017-08-11 17:42] LABS: GLUCOSE COMMENT 1 Received Meds; GLUCOSE,POINT OF CARE 202 MG/DL (70-110)
[2017-08-11 21:37] LABS: GLUCOSE COMMENT 1 Received Meds; GLUCOSE,POINT OF CARE 169 MG/DL (70-110)
[2017-08-12 00:30] VITALS: BP 144/86
[2017-08-12 06:22] LABS: GLUCOSE COMMENT 1 Received Meds; GLUCOSE,POINT OF CARE 172 MG/DL (70-110)
[2017-08-12] MEDS: INSULIN ASPART 100 UNITS/ML SQ PRN ×2 (07:11→11:33)
[2017-08-12] MEDS: MetFORMIN HCL 500 MG TABLET PO SCH (07:11)
[2017-08-12] MEDS: FERROUS SULFATE 325 MG EC TABLET PO SCH (07:11)
[2017-08-12 08:00] VITALS: BP 150/89
[2017-08-12] MEDS: SitaGLIPtin PHOSPHATE 100 MG TABLET PO SCH (08:20)
[2017-08-12] MEDS: ATORVASTATIN CALCIUM 40 MG TABLET PO SCH (08:20)
[2017-08-12] MEDS: PREGABALIN 50 MG CAPSULE PO SCH ×2 (08:20→13:33)
[2017-08-12] MEDS: ASPIRIN 325 MG EC TABLET PO SCH (08:20)
[2017-08-12] MEDS: VENLAFAXINE HCL 75 MG TABLET PO SCH ×2 (08:20→13:33)
[2017-08-12] MEDS: OMEPRAZOLE 20 MG CAPSULE PO SCH (08:21)
[2017-08-12] MEDS: ARIPiprazole 5 MG TABLET PO SCH (08:21)
[2017-08-12] MEDS: LISINOPRIL 20 MG TABLET PO SCH (08:21)
[2017-08-12] MEDS: AmLODIPine BESYLATE 5 MG TABLET PO SCH (08:23)
[2017-08-12 11:22] LABS: GLUCOSE COMMENT 1 Received Meds; GLUCOSE,POINT OF CARE 235 MG/DL (70-110)
[2017-08-12] MEDS ORDERED: FERR-89 PO (12:15)
== END 2017-08-12 17:30 | disposition home or self-care (01) | DRG 885 ==
LOC: EMS 01:55 → 3EX 20:17 → UNDODISIN 07-25 14:10
PROVIDERS: ADMIT Psychiatry & Neurology Child & Adolescent Psychiatry; ATTEND Psychiatry & Neurology Child & Adolescent Psychiatry
DX: F25.1 Schizoaffective disorder, depressive type (principal); D69.6 Thrombocytopenia, unspecified; F33.2 Major depressive disorder, recurrent severe without psychotic features; R45.851 Suicidal ideations; E11.65 Type 2 diabetes mellitus with hyperglycemia; E78.5 Hyperlipidemia, unspecified; E87.6 Hypokalemia; I10 Essential (primary) hypertension; K21.9 Gastro-esophageal reflux disease without esophagitis; Z88.0 Allergy status to penicillin; Z79.84 Long term (current) use of oral hypoglycemic drugs; Z79.4 Long term (current) use of insulin; Z79.899 Other long term (current) drug therapy; Z90.710 Acquired absence of both cervix and uterus; Z98.891 History of uterine scar from previous surgery; Z82.49 Family history of ischemic heart disease and other diseases of the circulatory system
CPT/HCPCS: 72100; 82962; 84132; 87081; 96372; 99285; G0480; J1815